=== PATIENT | female | born 1980 | race African-American/Black ===

== ENCOUNTER → 2017-09-02 12:44 | Outpatient (CLI) | payer MEDICAID, SELFPAY ==
[2017-09-02 13:37] LABS: Basophils # 0.1 K/mm3 (0-0.2); Basophils % 0.4 % (0.1-2.0); Eosinophils # 0.2 K/mm3 (0.0-0.4); Eosinophils % 1.4 % (0.1-12.0); Hematocrit 52.2 % (37.0-47.0); Lymphocytes # 3.7 K/mm3 (0.7-4.5); Lymphocytes % 28.4 K/mm3 (10-50); Mean Corpuscular HGB Conc 30.6 g/dL (31.8-35.4); Mean Corpuscular Hemoglobin 26.3 pg (27.0-31.2); Mean Corpuscular Volume 85.8 fl (81-99); Mean Platelet Volume 8.5 fl (7.4-10.4); Monocytes # 0.6 K/mm3 (0.1-1.0); Monocytes % 4.4 % (1.7-9.3); Neutrophils # 8.6 K/mm3 (1.8-7.8); Neutrophils % 65.5 % (37.0-80.0); Platelet Count 266 K/mm3 (142-424); Red Blood Count 6.08 M/mm3 (4.20-5.40); Red Cell Distribution Width 14.9 % (11.5-17.5); White Blood Count 13.2 K/mm3 (4.8-10.8)
[2017-09-02 15:11] LABS: Alanine Aminotransferase 35 U/L (12-78); Albumin Level 4.2 gm/dL (3.4-5.0); Albumin/Globulin Ratio 1.1 (1.1-1.8); Alkaline Phosphatase 106 U/L (46-116); Anion Gap 13.1 mEq/L (5-15); Aspartate Amino Transferase 10 U/L (15-37); Bilirubin,Total 0.5 mg/dL (0.2-1.0); Blood Urea Nitrogen 6 mg/dL (7-18); Calcium 9.4 mg/dL (8.5-10.1); Carbon Dioxide 28 mmol/L (21.0-32.0); Chloride 103 mmol/L (98-107); Chol/HDL Ratio 3.3 (1-3.5); Cholesterol 180 mg/dL (140-200); Creatinine,Serum 0.79 mg/dL (0.55-1.02); Estimated Glomerular Filt Rate > 60 ml/min (>60); GFR (African American) > 60 ML/MIN (>60); Glucose 86 mg/dL (74-106); HDL Cholesterol 55 mg/dL (29-89); LDL Cholesterol 105 mg/dL (0-130); Potassium 4.1 mmoL/L (3.5-5.1); Sodium 140 mmol/L (136-145); Total Protein,Serum 8.2 gm/dL (6.4-8.2); Triglycerides 99 mg/dL (30-200); VLDL Cholesterol 20 mg/dL (0-40)
[2017-09-03 07:12] LABS: Hep A Ab, IgM Negative (Negative); Hepatitis B Core Antibody IgM Negative (Negative); Hepatitis B Surface Antigen Negative (Negative)
[2017-09-03 14:40] LABS: HIV Screen 4th Generation wRfx Non Reactive (Non Reactive); Hepatitis C Antibody >11.0 s/co ratio (0.0-0.9); Rapid Plasma Reagin Ab Titer Non Reactive (NonRea<1:1)
== END ==
PROVIDERS: PCP Nurse Practitioner Family; Visit Provider Nurse Practitioner Family
DX: B18.2 Chronic viral hepatitis C (principal); Z87.898 Personal history of other specified conditions; Z20.2 Contact with and (suspected) exposure to infections with a predominantly sexual mode of transmission; Z00.00 Encounter for general adult medical examination without abnormal findings
CPT/HCPCS: 36415; 80053; 80061; 80074; 85025; 86592; 86703; G0432

== ENCOUNTER 2017-09-02 19:45 | Emergency (ER) | payer MEDICAID, SELFPAY ==
[2017-09-02 19:55] VITALS: BP 129/69; PULSE 82; RESP 16; TEMP 36.6; O2SAT 100; BMI 25.7
[2017-09-02 20:25] LABS: Amphetamine/Metha Screen,Urine Negative ng/mL (<1000); Barbiturates Screen,Urine Negative ng/mL (<200); Benzodiazepines Screen,Urine Negative ng/mL (200); Cannabinoid Screen,Urine Negative ng/mL (<50); Cocaine Screen,Urine Negative ng/g (<300); Methadone Screen,Urine Negative ng/mL (<300); Opiate Screen,Urine Negative ng/mL (<300); Phencyclidine Screen,Urine Negative ng/mL (<25)
--- NOTE | 2017-09-02 21:20 | HMH.EDANX ---
ED Disposition Clinical Impression: Hyperventilation Disposition: Home, Self-Care Condition on Discharge: Good Instructions: Anxiety and Panic Attacks (Alternative Therapy) Additional Instructions: call pcp for follow up Referrals: Grace Beltre APRN [Primary Care Provider] - - Critical Care Critical Care Time: No Attestation: On 09/02/17, the high probability of a clinically significant, sudden or life threatening deterioration of the following system(s) required my full and direct attention, intervention and personal management. The time I documented below is in addition to time spent performing reported procedures but includes the following listed in this critical care notation. Medical Decision Making - Medical Records Medical records reviewed: Yes: I reviewed the patient's medical records. Vital Signs: 09/02/17 19:55 Temperature 98 F Temperature Source Oral Pulse Rate [Right Brachial] 82 Respiratory Rate 16 Blood Pressure [Right Arm] 129/69 Blood Pressure Mean [Right Arm] 89 Blood Pressure Source [Right Arm] Automatic Cuff Blood Pressure Position [Right Arm] Sitting 02 Sat by Pulse Oximetry 100 Oxygen Delivery Method Room Air - Lab Data Lab Results 09/02/17 20:08: Urine Opiates Screen Negative, Ur Barbituates Screen Negative, Ur Phencyclidine Scrn Negative, Ur Amphetamines Screen Negative, U Methamphetamines Scrn Negative, U Benzodiazepines Scrn Negative, Urine Cocaine Screen Negative, U Marijuana (THC) Screen Negative - Henry Inquiry Pt receiving controlled substance: No Anxiety HPI - General Chief Complaint: Anxiety Stated Complaint: Shaking, numbness in legs, tightness in chest, Time Seen by Provider: 09/02/17 21:20 Mode of Arrival: Ambulatory Limitations: No Limitations Description of Symptoms (Recalled from ER Triage Doc. by RN): PATIENT WAS USING A RAZOR THAT HER EX BOYFRIEND PACKED WHEN THEY SPLIT IN AUG AND SHE SUDDENLY STARTED SHAKING UNCONTROLLABLY AND DEVELOPED NUMBNESS TO TOP OF FEET AND ROOF OF MOUTH AND UP JOSEPH OF LEGS. SEEMS TO THINK IT IS RELATED TO THE RAZOR USE - History of Present Illness HPI narrative: no hives or itching and no reddness and no swelling or speech or visual sx and lasted 2 hrs at baseline now MD complaint: anxiety Onset (ago): hour(s) Symptoms: extremity numbness/tingling, perioral numbness/tingling Severity: moderate Quality: improving Place: home History of similar episodes: No Provoking factors: none known - Related Data Allergies/Adverse Reactions: Allergies Allergy/AdvReac Type Severity Reaction Status Date / Time From LORTAB Allergy Intermediate I-ITCHING Uncoded 08/19/17 14:39 From CIPRO Allergy Unknown S-SWELLS-OR Uncoded 08/19/17 14:39 AL/THROAT [facility] History I have reviewed the patient's past medical history: Yes Medical History: Denies:: Cancer, Diabetes Mellitus Type 1, Diabetes Mellitus Type 2, MRSA Amputation: No Fractures: No - *Social History Educational Level: Completed High School Smoking Status: Current every day smoker Tobacco Type: cigarettes Alcohol Intake: never - Psychiatric History Expresses thoughts of harming self/others: None Suicide Plan Description: No Plan ROS Obtained: Yes All systems reviewed & no additional complaints except as noted - Constitutional Denies fever(s) - Eyes Denies change in vision - Cardiovascular Denies lightheadedness, Denies rapid, pounding, or irregular heartbeat, Denies radiating jaw, neck or arm pain, Denies fainting - Respiratory Denies cough, Denies shortness of breath - Neurologic Reports tingling, Denies confusion, Denies seizure-like activity, Denies headache(s), Denies loss of vision - Psychiatric Denies thoughts of hurting/killing others, Denies seeing things others do not see Physical Exam - General General appearance: alert, in no apparent distress - Head Head exam: atraumatic - Eye Eye exam: Present: normal appearance -
--- NOTE | 2017-09-02 21:23 | ED_ITS ---
ED Disposition Clinical Impression: Hyperventilation Disposition: Home, Self-Care Condition on Discharge: Good Instructions: Anxiety and Panic Attacks (Alternative Therapy) Additional Instructions: call pcp for follow up Referrals: Grace Beltre APRN [Primary Care Provider] - - Critical Care Critical Care Time: No Attestation: On 09/02/17, the high probability of a clinically significant, sudden or life threatening deterioration of the following system(s) required my full and direct attention, intervention and personal management. The time I documented below is in addition to time spent performing reported procedures but includes the following listed in this critical care notation. Medical Decision Making - Medical Records Medical records reviewed: Yes: I reviewed the patient's medical records. Vital Signs: 09/02/17 19:55 Temperature 98 F Temperature Source Oral Pulse Rate [Right Brachial] 82 Respiratory Rate 16 Blood Pressure [Right Arm] 129/69 Blood Pressure Mean [Right Arm] 89 Blood Pressure Source [Right Arm] Automatic Cuff Blood Pressure Position [Right Arm] Sitting 02 Sat by Pulse Oximetry 100 Oxygen Delivery Method Room Air - Lab Data Lab Results 09/02/17 20:08: Urine Opiates Screen Negative, Ur Barbituates Screen Negative, Ur Phencyclidine Scrn Negative, Ur Amphetamines Screen Negative, U Methamphetamines Scrn Negative, U Benzodiazepines Scrn Negative, Urine Cocaine Screen Negative, U Marijuana (THC) Screen Negative - Henry Inquiry Pt receiving controlled substance: No Anxiety HPI - General Chief Complaint: Anxiety Stated Complaint: Shaking, numbness in legs, tightness in chest, Time Seen by Provider: 09/02/17 21:20 Mode of Arrival: Ambulatory Limitations: No Limitations Description of Symptoms (Recalled from ER Triage Doc. by RN): PATIENT WAS USING A RAZOR THAT HER EX BOYFRIEND PACKED WHEN THEY SPLIT IN AUG AND SHE SUDDENLY STARTED SHAKING UNCONTROLLABLY AND DEVELOPED NUMBNESS TO TOP OF FEET AND ROOF OF MOUTH AND UP JOSEPH OF LEGS. SEEMS TO THINK IT IS RELATED TO THE RAZOR USE - History of Present Illness HPI narrative: no hives or itching and no reddness and no swelling or speech or visual sx and lasted 2 hrs at baseline now MD complaint: anxiety Onset (ago): hour(s) Symptoms: extremity numbness/tingling, perioral numbness/tingling Severity: moderate Quality: improving Place: home History of similar episodes: No Provoking factors: none known - Related Data Allergies/Adverse Reactions: Allergies Allergy/AdvReac Type Severity Reaction Status Date / Time From LORTAB Allergy Intermediate I-ITCHING Uncoded 08/19/17 14:39 From CIPRO Allergy Unknown S-SWELLS-OR Uncoded 08/19/17 14:39 AL/THROAT [facility] History I have reviewed the patient's past medical history: Yes Medical History: Denies:: Cancer, Diabetes Mellitus Type 1, Diabetes Mellitus Type 2, MRSA Amputation: No Fractures: No - *Social History Educational Level: Completed High School Smoking Status: Current every day smoker Tobacco Type: cigarettes Alcohol Intake: never - Psychiatric History Expresses thoughts of harming self/others: None Suicide Plan Description: No Plan ROS Obtained: Yes All systems reviewed & no additional complaints except as noted - Constitutional Denies fever(s) - Eyes Denie
[2017-09-02 21:41] VITALS: BP 119/85; PULSE 58; RESP 18; TEMP 36.6; O2SAT 99
== END 2017-09-02 21:44 | disposition home or self-care (01) ==
PROVIDERS: Emergency Provider Emergency Medicine; PCP Nurse Practitioner Family
DX: F41.9 Anxiety disorder, unspecified (principal); F40.01 Agoraphobia with panic disorder; F17.210 Nicotine dependence, cigarettes, uncomplicated
CPT/HCPCS: 80305; 99282; 99283

== ENCOUNTER → 2017-09-25 10:53 | Outpatient (CLI) | payer MEDICAID, SELFPAY ==
--- NOTE | 2017-09-25 11:06 | XR_ITS ---
XR chest 2V HISTORY: ITS.REASON: PERSISTENT COUGH ORDERING PHYSICIAN: Grace Beltre PATIENT AGE: 37 years COMPARISON: None available FINDINGS: The cardiac size is upper limits of normal. No evidence of CHF.. The lungs are clear without infiltrates, suspicious nodules, or pleural effusions. All granulomatous disease No acute bony abnormalities. IMPRESSION: No change with no acute finding
== END ==
PROVIDERS: PCP Internal Medicine Adolescent Medicine; Visit Provider Nurse Practitioner Family
DX: R05 Cough (principal)
CPT/HCPCS: 71046

== ENCOUNTER 2017-12-03 10:27 | Emergency (ER) | payer MEDICAID, SELFPAY ==
[2017-12-03 10:28] VITALS: BP 121/76; PULSE 63; RESP 18; TEMP 36.4; O2SAT 100; BMI 28.3
--- NOTE | 2017-12-03 10:41 | HMH.EDANX ---
ED Disposition Clinical Impression: Acute anxiety Disposition: Home, Self-Care Condition on Discharge: Good Instructions: Anxiety Disorders Additional Instructions: Please follow up with [facility]: [place] [address] within the next 2 days. Prescriptions: Amitriptyline HCl [Elavil 10mg tablet] 10 mg PO DAILY #30 tab Referrals: Nam Mccord MD [Primary Care Provider] - Forms: Work/School Release Time of Disposition: 13:03 - Critical Care Critical Care Time: No Attestation: On , the high probability of a clinically significant, sudden or life threatening deterioration of the following system(s) required my full and direct attention, intervention and personal management. The time I documented below is in addition to time spent performing reported procedures but includes the following listed in this critical care notation. Medical Decision Making - Medical Records Medical records reviewed: Yes: I reviewed the patient's medical records. - Henry Inquiry Pt receiving controlled substance: No Vital Signs: 12/03/17 10:28 12/03/17 12:38 12/03/17 13:11 Temperature 97.6 F 98.4 F Temperature Source Temporal Artery Scan Pulse Rate 76 Pulse Rate [Right Brachial] 63 72 Respiratory Rate 18 18 16 Blood Pressure 121/77 Blood Pressure [Right Arm] 121/76 122/80 Blood Pressure Mean [Right Arm] 91 94 Blood Pressure Source [Right Arm] Automatic Cuff Blood Pressure Position [Right Arm] Sitting 02 Sat by Pulse Oximetry 100 100 Oxygen Delivery Method Room Air Room Air Room Air - Lab Data Lab Results 12/03/17 10:40: Urine Color Yellow, Urine Appearance Clear, Urine pH 6.0, Ur Specific [place] >= 1.030, Urine Protein Trace, Urine Glucose (UA) Negative, Urine Ketones 1+, Urine Blood Negative, Urine Nitrate Negative, Urine Bilirubin Negative, Urine Urobilinogen 0.2, Ur Leukocyte Esterase Trace, Urine RBC None, Urine WBC Occasional, Ur Squamous Epith Cells 20-50, Urine Bacteria 2+, Urine Mucus 4+ 12/03/17 10:40: Urine Opiates Screen Negative, Ur Barbituates Screen Negative, Ur Phencyclidine Scrn Negative, Ur Amphetamines Screen Negative, U Methamphetamines Scrn Negative, U Benzodiazepines Scrn Negative, Urine Cocaine Screen Negative, U Marijuana (THC) Screen Negative 12/03/17 11:05: WBC 16.3 H, RBC 5.94 H, Hgb 16.7 H, Hct 52.2 H, MCV 87.8, MCH 28.2, MCHC 32.1, RDW 14.2, Plt Count 262, MPV 8.4, Neut % (Auto) 75.2, Lymph % (Auto) 17.9, [place] % (Auto) 5.0, Eos % (Auto) 1.5, Baso % (Auto) 0.4, Neut # (Auto) 12.3 H, Lymph # (Auto) 2.9, [place] # (Auto) 0.8, Eos # (Auto) 0.3, Baso # (Auto) 0.1, Total Counted 100, Neutrophils % (Manual) 75, Lymphocytes % (Manual) 17, Atypical Lymphs % 2.0, Monocytes % (Manual) 5, Eosinophils % (Manual) 1, Platelet Estimate Normal 12/03/17 11:05: Sodium 139, Potassium 4.3, Chloride 101, Carbon Dioxide 28, Anion Gap 14.3, BUN 8, Creatinine 0.80, Estimated Creat Clear 112, Estimated GFR 82, Est GFR ( Amer) 99, Glucose 90, Calcium 10.1, Total Bilirubin 0.6, AST 15, ALT 28, Alkaline Phosphatase 102, Total Protein 9.3 H, Albumin 4.6, Globulin 4.7 H, Albumin/Globulin Ratio 1.0 L, TSH 0.98, Salicylates 4.2, Acetaminophen 0 L Result diagrams: 12/03/17 11:05 12/03/17 11:05 Orders (Tests/Meds): ORDERS Category Date Time Status Urine Culture Stat Micro 12/03/17 10:40 Received - Reevaluation(s) Time: 13:00 Reevaluation #1: Patient appears medically stable, in no acute distress at this time. She appears to have a need for additional outpatient psychiatric evaluation, information given for [facility]. Anxiety HPI - General Chief Complaint: Anxiety Stated Complaint: Anxiety Time Seen by Provider: 12/03/17 10:41 Mode of Arrival: Ambulatory Limitations: No Limitations Description of Symptoms (Recalled from ER Triage Doc. by RN): Pt reports is here r/t anxiety. Pt reprots
[2017-12-03 11:14] LABS: Appearance,Urine CLEAR (Clear); Bilirubin,Urine Negative (Negative); Blood, Urine Negative (Negative); Color,Urine YELLOW (Yellow); Glucose,Urine (UA) Negative (Negative); Ketones,Urine 1+ (Negative); Leukocyte Esterase,Urine TRACE (Negative); Microscopic, Urine URINE MICROSCOPIC (MICROSCOPIC); Nitrate,Urine Negative (Negative); Protein,Urine TRACE (Negative); Specific Gravity, Urine >= 1.030 (1.005-1.030); Urobilinogen,Urine 0.2 EU/dl (0.2)
[2017-12-03 11:15] LABS: Basophils # 0.1 K/mm3 (0-0.2); Basophils % 0.4 % (0.1-2.0); Eosinophils # 0.3 K/mm3 (0.0-0.4); Eosinophils % 1.5 % (0.1-12.0); Hematocrit 52.2 % (37.0-47.0); Hemoglobin 16.7 g/dL (12.2-16.2); Lymphocytes # 2.9 K/mm3 (0.7-4.5); Lymphocytes % 17.9 K/mm3 (10-50); Mean Corpuscular HGB Conc 32.1 g/dL (31.8-35.4); Mean Corpuscular Hemoglobin 28.2 pg (27.0-31.2); Mean Corpuscular Volume 87.8 fl (81-99); Mean Platelet Volume 8.4 fl (7.4-10.4); Monocytes # 0.8 K/mm3 (0.1-1.0); Neutrophils # 12.3 K/mm3 (1.8-7.8); Neutrophils % 75.2 % (37.0-80.0); Platelet Count 262 K/mm3 (142-424); Red Blood Count 5.94 M/mm3 (4.20-5.40); Red Cell Distribution Width 14.2 % (11.5-17.5); White Blood Count 16.3 K/mm3 (4.8-10.8)
[2017-12-03 11:18] LABS: MANUAL DIFFERENTIAL MANUAL DIFFERENTIAL (MANUAL DIFF)
[2017-12-03 11:22] LABS: Amphetamine/Metha Screen,Urine Negative ng/mL (<1000); Barbiturates Screen,Urine Negative ng/mL (<200); Benzodiazepines Screen,Urine Negative ng/mL (200); Cannabinoid Screen,Urine Negative ng/mL (<50); Cocaine Screen,Urine Negative ng/g (<300); Methadone Screen,Urine Negative ng/mL (<300); Opiate Screen,Urine Negative ng/mL (<300); Phencyclidine Screen,Urine Negative ng/mL (<25)
[2017-12-03 11:32] LABS: Bacteria,Urine 2+ /lpf; Mucus,Urine 4+ /lpf; Squamous Epithelial Cell,Urine 20-50 #/hpf (0-5); WBC,Urine Occasional #/hpf (0-3)
[2017-12-03 11:37] LABS: Alanine Aminotransferase 28 U/L (12-78); Albumin Level 4.6 gm/dL (3.4-5.0); Alkaline Phosphatase 102 U/L (46-116); Anion Gap 14.3 mEq/L (5-15); Aspartate Amino Transferase 15 U/L (15-37); Bilirubin,Total 0.6 mg/dL (0.2-1.0); Blood Urea Nitrogen 8 mg/dL (7-18); Calcium 10.1 mg/dL (8.5-10.1); Carbon Dioxide 28 mmol/L (21.0-32.0); Chloride 101 mmol/L (98-107); Creatinine Clearance Estimated 112 mL/min (0-300); Estimated Glomerular Filt Rate 82 ml/min (>60); GFR (African American) 99 ML/MIN (>60); Globulin 4.7 gm/dl (1.3-3.2); Glucose 90 mg/dL (74-106); Potassium 4.3 mmoL/L (3.5-5.1); Salicylate 4.2 mg/dL (2.8-20.0); Sodium 139 mmol/L (136-145); Thyroid Stimulating Hormone 0.98 uIU/ml (0.358-3.740); Total Protein,Serum 9.3 gm/dL (6.4-8.2)
[2017-12-03 11:44] LABS: Eosinophils % 1 % (0-3); Lymphocytes % 17 % (10-50); Monocytes % 5 % (2-9); Neutrophils % 75 % (42-76); Platelet Estimate Normal; Total Cells Counted 100
[2017-12-03 11:46] LABS: Acetaminophen 0 ug/mL (10-30)
--- NOTE | 2017-12-03 12:15 | PC.NURSE ---
Notified ANICETO LAMAR that all of pt results are back
[2017-12-03 12:38] VITALS: BP 122/80; PULSE 72; RESP 18; O2SAT 100
[2017-12-03 13:11] VITALS: BP 121/77; PULSE 76; RESP 16; TEMP 36.9; O2SAT 99
== END 2017-12-03 13:12 | disposition home or self-care (01) ==
PROVIDERS: Emergency Provider Emergency Medicine; PCP Internal Medicine Adolescent Medicine
DX: F41.9 Anxiety disorder, unspecified (principal); F17.210 Nicotine dependence, cigarettes, uncomplicated
CPT/HCPCS: 36415; 80053; 80305; 80329; 81001; 84443; 85007; 85025; 87086; 99283

== ENCOUNTER → 2018-07-22 16:43 | Outpatient (CLI) | payer MEDICAID, SELFPAY ==
[2018-07-22 18:02] LABS: Basophils # 0.1 K/mm3 (0-0.2); Basophils % 0.4 % (0.1-2.0); Eosinophils # 0.1 K/mm3 (0.0-0.4); Eosinophils % 1.3 % (0.1-12.0); Hematocrit 45.6 % (37.0-47.0); Hemoglobin 14.2 g/dL (12.2-16.2); Lymphocytes # 3.4 K/mm3 (0.7-4.5); Lymphocytes % 32.3 % (10-50); Mean Corpuscular Hemoglobin 26.9 pg (27.0-31.2); Mean Corpuscular Volume 86.8 fl (81-99); Mean Platelet Volume 8.7 fl (7.4-10.4); Monocytes # 0.8 K/mm3 (0.1-1.0); Monocytes % 7.2 % (1.7-9.3); Neutrophils # 6.1 K/mm3 (1.8-7.8); Neutrophils % 58.8 % (37.0-80.0); Platelet Count 224 K/mm3 (142-424); Red Blood Count 5.26 M/mm3 (4.20-5.40); Red Cell Distribution Width 13.2 % (11.5-17.5); White Blood Count 10.4 K/mm3 (4.8-10.8)
[2018-07-22 18:19] LABS: Alanine Aminotransferase 19 U/L (12-78); Albumin Level 3.8 gm/dL (3.4-5.0); Alkaline Phosphatase 75 U/L (46-116); Anion Gap 12.4 mEq/L (5-15); Aspartate Amino Transferase 8 U/L (15-37); Bilirubin,Total 0.5 mg/dL (0.2-1.0); Blood Urea Nitrogen 14 mg/dL (7-18); Calcium 9.1 mg/dL (8.5-10.1); Carbon Dioxide 27 mmol/L (21.0-32.0); Chloride 104 mmol/L (98-107); Creatinine,Serum 0.79 mg/dL (0.55-1.02); Estimated Glomerular Filt Rate 82 ml/min (>60); GFR (African American) 100 ML/MIN (>60); Globulin 3.9 gm/dl (1.3-3.2); Potassium 4.4 mmoL/L (3.5-5.1); Sodium 139 mmol/L (136-145); Total Protein,Serum 7.7 gm/dL (6.4-8.2)
[2018-07-22 18:47] LABS: Glucose 75 mg/dL (74-106)
== END ==
PROVIDERS: Visit Provider Nurse Practitioner
DX: B18.2 Chronic viral hepatitis C (principal); Z79.899 Other long term (current) drug therapy
CPT/HCPCS: 36415; 80053; 85025; 87522

== ENCOUNTER → 2021-06-16 09:54 | Outpatient (CLI) | payer SELFPAY ==
[2021-06-16 11:27] LABS: Alanine Aminotransferase 12 U/L (12-78); Albumin Level 4.2 g/dl (3.5-5.0); Albumin/Globulin Ratio 1.3 (1.1-1.8); Alkaline Phosphatase 67 U/L (38-126); Anion Gap 11.7 mEq/L (5-15); Aspartate Amino Transferase 23 U/L (14-36); Bilirubin,Total 0.3 mg/dl (0.2-1.3); Blood Urea Nitrogen 10 mg/dl (7-17); Calcium 9.5 mg/dl (8.4-10.2); Carbon Dioxide 25 mmol/L (22.0-30.0); Chloride 107 mmol/L (98-107); Chol/HDL Ratio 3.2 (1-3.5); Cholesterol 197 mg/dl (140-200); Estimated Glomerular Filt Rate 111 ml/min (>60); GFR (African American) 135 ML/MIN (>60); Globulin 3.2 g/dL (1.3-3.2); Glucose 87 mg/dl (74-100); HDL Cholesterol 62 mg/dl (40-60); Potassium 4.7 mmoL/L (3.5-5.1); Sodium 139 mmol/L (136-145); Total Protein,Serum 7.4 g/dl (6.3-8.2); Triglycerides 44 mg/dl (30-150); VLDL Cholesterol 9 mg/dL (0-40)
== END ==
PROVIDERS: Visit Provider Nurse Practitioner Family
DX: Z00.00 Encounter for general adult medical examination without abnormal findings (principal)
CPT/HCPCS: 36415; 80053; 80061

== ENCOUNTER → 2021-12-11 15:13 | Outpatient (CLI) | payer OTHER, SELFPAY ==
--- NOTE | 2021-12-11 15:19 | XR_ITS ---
FINAL REPORT CLINICAL HISTORY: PERSISTENT COUGH FOR 3WKS OR LONGER, PT HAD COVID IN SEP COMPARISON: 09/25/2017 FINDINGS: TWO-VIEW CHEST The heart size is normal. The mediastinum is normal. The lungs are clear. There is no pneumothorax. IMPRESSION: No acute cardiopulmonary process. Reviewed, Interpreted and Dictated by Alhaji Rodgers MD Transcribed by Marah Dinh Authenticated by Alhaji Rodgers MD on 12/11/2021 04:11:[address] [facility]
== END ==
PROVIDERS: PCP Nurse Practitioner Family; Visit Provider Nurse Practitioner Family
DX: R05.3 Chronic cough (principal)
CPT/HCPCS: 71046

== ENCOUNTER 2022-01-22 15:00 | Emergency (ER) | payer OTHER, SELFPAY ==
[2022-01-22 15:10] VITALS: BP 142/110; PULSE 72; RESP 20; TEMP 36.8; O2SAT 100; BMI 26.3
--- NOTE | 2022-01-22 15:41 | HMH.EDUTC ---
[facility] [place] Clinical Impression: Paronychia Disposition: Home, Self-Care Condition on Discharge: Good Instructions: Paronychia, DI for Paronychia, Amoxicillin and Clavulanic Acid, Mupirocin Additional Instructions: Soak finger 2-3 times daily in warm water and epson salt and pat dry Apply topical medication around the fingernail as directed Take oral antibiotics as prescribed Follow up with your Family Doctor if no improvement or any worsening of symptoms Straight to ER if any life threatening symptoms Prescriptions: Amoxicillin/Potassium Clav [Amox-Clav 875-125 mg Tablet] 1 tab PO BID #14 tab Transmission Status: Pending to [facility] Mupirocin [Bactroban 2% Ointment 22gm tube] 1 applicatio TP TID #22 gm Transmission Status: Pending to [facility] Referrals: Grace Beltre APRN [Primary Care Provider] - As needed Time of Disposition: 15:56 Medical Decision Making - Henry Inquiry Pt receiving controlled substance: No Henry was queried for this patient: No Vital Signs: 01/22/22 15:10 Temperature 98.2 F Temperature Source Oral Pulse Rate [Left Brachial] 72 Respiratory Rate 20 Blood Pressure [Left Arm] 142/110 H Blood Pressure Mean [Left Arm] 120 Blood Pressure Source [Left Arm] Automatic Cuff Blood Pressure Position [Left Arm] Sitting 02 Sat by Pulse Oximetry 100 Oxygen Delivery Method Room Air [facility] - General Stated complaint: swollen finger Time Seen by Provider: 01/22/22 15:41 Mode of Arrival: Ambulatory Source of Information: Patient Limitations: No Limitations Description of Symptoms (Recalled from Triage Doc. by RN): PATIENT C/O REDNESS AND SWELLING TO LEFT RING FINGER X 1 WEEK HEENT Symptoms (Recalled from RN notes): No Resp Symptoms (Recalled from RN notes): No Skin Symptoms (Recalled from RN notes): Yes MS Symptoms (Recalled from RN notes): No Functional Status (Recalled from RN notes): WNL - History of Present Illness Provider Complaint: Patient states that she has been having some swelling around her finger nail on her left ring finger States that she has been soaking it but today it was more red and swollen so she came in - Related Data Home Medications Medication Instructions Recorded Confirmed Levocetirizine Dihydrochloride 5 mg PO DAILY 01/22/22 01/22/22 [24Hr Allergy Relief] Montelukast Sodium [Singulair 10mg 10 mg PO PM 01/22/22 01/22/22 tablet] Previous Rx's Medication Instructions Recorded Amoxicillin/Potassium Clav 1 tab PO BID #14 tab 01/22/22 [Amox-Clav 875-125 mg Tablet] Mupirocin [Bactroban 2% Ointment 1 applicatio TP TID #22 gm 01/22/22 22gm tube] Allergies Allergy/AdvReac Type Severity Reaction Status Date / Time acetaminophen [From Lortab] Allergy Verified 01/22/22 15:20 ciprofloxacin [From Cipro] Allergy Swelling Verified 01/22/22 15:20 of Lip/Tongue/Throat hydrocodone [From Lortab] Allergy Verified 01/22/22 15:20 - Worker's Comp Is this a Worker's Comp case?: No [facility] History - Hepatitis A Screen Attestation statement:: This patient has been screened for Hepatitis A risk factors. I have reviewed the patient's past medical history: Yes Medical History: Reports:: Anxiety, Depression Denies:: Cancer, Diabetes Mellitus Type 1, Diabetes Mellitus Type 2, Hypertension, Migraine, MRSA, Seizures Comment: fiborids Other Surgeries: Yes: Amputation: No Fractures: No - Social History Smoking Status: Current every day smoker Tobacco Type: cigarettes Alcohol Intake: never Substance Use Type: former substance user Occupational Status: other - Psychiatric History Pschychiatric History:: Reports:: Anxiety, Depression Family Hx:: Cancer, Diabetes, Heart Attack, Stroke, Hypertension, Hyperlipidemia ROS Obtained: Yes All systems reviewed & no additional complaints, Yes Systems reviewed as appropriate & no additional complaints - Constitutional Constit
[2022-01-22 15:57] VITALS: BP 142/110; PULSE 72; RESP 20; TEMP 36.8; O2SAT 100
== END 2022-01-22 16:00 | disposition home or self-care (01) ==
PROVIDERS: Emergency Provider Nurse Practitioner; PCP Nurse Practitioner Family
DX: L03.012 Cellulitis of left finger (principal); Z88.1 Allergy status to other antibiotic agents; Z88.6 Allergy status to analgesic agent
CPT/HCPCS: 99212; G0463

== ENCOUNTER 2022-04-24 07:50 | Emergency (ER) | payer OTHER, SELFPAY ==
[2022-04-24 07:52] VITALS: BP 167/108; PULSE 83; RESP 18; TEMP 36.8; O2SAT 100; BMI 28.3
--- NOTE | 2022-04-24 08:15 | PC.NURSE ---
IV established and blood sent to the lab
[2022-04-24 08:30] VITALS: BP 172/106; PULSE 96; RESP 17; O2SAT 100
--- NOTE | 2022-04-24 08:40 | PC.NURSE ---
pt medicated per MAR
[2022-04-24 09:00] VITALS: BP 158/100; PULSE 86; RESP 18; O2SAT 100
[2022-04-24 09:19] VITALS: BP 151/90; PULSE 84; RESP 18; TEMP 36.8; O2SAT 100
--- NOTE | 2022-04-24 09:19 | PC.NURSE ---
pt given d/c instructions and IV d/c at this time
[2022-04-24 09:30] LABS: Alanine Aminotransferase 17 U/L (12-78); Albumin Level 4.8 g/dl (3.5-5.0); Albumin/Globulin Ratio 1.3 (1.1-1.8); Alkaline Phosphatase 95 U/L (38-126); Anion Gap 11.8 mEq/L (5-15); Aspartate Amino Transferase 23 U/L (14-36); Bilirubin,Total 0.4 mg/dl (0.2-1.3); Blood Urea Nitrogen 14 mg/dl (7-17); Calcium 10.3 mg/dl (8.4-10.2); Carbon Dioxide 31 mmol/L (22.0-30.0); Chloride 100 mmol/L (98-107); Estimated Glomerular Filt Rate 79 ml/min (>60); GFR (African American) 96 ML/MIN (>60); Globulin 3.8 g/dL (1.3-3.2); Glucose 86 mg/dl (74-100); Potassium 3.8 mmoL/L (3.5-5.1); Sodium 139 mmol/L (136-145); Total Protein,Serum 8.6 g/dl (6.3-8.2)
--- NOTE | 2022-04-24 09:43 | HMH.EDGENADL ---
Discharge Plan Disposition Patient Disposition: Home, Self-Care Condition: Good Chief Complaint: Allergic Reaction Prescriptions Prescriptions: No Action montelukast 10 MG tablet 10 mg PO PM levocetirizine 5 MG tablet 5 mg PO DAILY Clinical Impressions Clinical Impression: Contact dermatitis Discharge ED Provider: Kemal Foreman General Adult HPI General Chief complaint: Allergic Reaction Stated complaint: allergic reaction Time Seen by Provider: 04/24/22 08:30 History of Present Illness HPI narrative: Patient says that since Friday she used an [id number] facial peel. On Friday she felt sick and nauseated with an episode of vomiting. On Friday she developed a rash on her face in the areas where she used to the chemical peel. It itches. No severe pain. She has tried crsk-ado-xgssmfw hydrocortisone cream without relief. Throat feels itchy on the inside and the outside. Related Data Home Medications Medication Instructions Recorded Confirmed levocetirizine 5 mg tablet 5 mg PO DAILY Allergy symptoms 01/22/22 04/24/22 montelukast 10 mg tablet 10 mg PO PM Allergy symptoms 01/22/22 04/24/22 Allergies Allergy/AdvReac Type Severity Reaction Status Date / Time acetaminophen [From Lortab] Allergy Verified 01/22/22 15:20 ciprofloxacin [From Cipro] Allergy Swelling Verified 01/22/22 15:20 of Lip/Tongue/Throat hydrocodone [From Lortab] Allergy Verified 01/22/22 15:20 [facility] Medical History (Updated 04/24/22 @ 21:30 by Kemal Foreman MD) Anxiety Social History Smoking Status: Never smoker alcohol intake: never substance use type: former substance user current occupational status: other ROS Obtained: Yes Systems reviewed as appropriate & no additional complaints except as documented Constitutional Constitutional: Denies fever(s) ENT Ears, Nose, Mouth, and Throat: Reports as per HPI and Denies dysphagia Respiratory Respiratory: Denies shortness of breath Gastrointestinal Gastrointestingal: Reports nausea and vomiting; Denies dysphagia Physical Exam General General appearance: alert and in no apparent distress ENT ENT exam: Present other (Erythematous mildly edematous facial rash forehead cheeks and chin. No signs of secondary infection. No vesicles.) Neck Neck exam: Present normal inspection and trachea midline Chest Chest inspection: Present normal inspection and symmetric chest wall rise Respiratory Respiratory exam: Present normal lung sounds bilaterally; Absent respiratory distress, wheezes or stridor Cardiovascular Cardiovascular exam: Present regular rate and normal rhythm Extremities Exam Extremities exam: Present normal inspection Neurological Exam Neurological exam: Present alert, oriented X3 and CN II-XII intact Psychiatric Psychiatric exam: Present normal affect and normal mood Skin Skin exam: Present warm and dry Medical Decision Making Henry Inquiry Pt receiving controlled substance: No Vital Signs: 04/24/22 07:52 04/24/22 08:30 04/24/22 09:00 Temperature 98.3 F Temperature Source Oral Pulse Rate 96 H 86 Pulse Rate [Left Radial] 83 Respiratory Rate 18 17 18 Blood Pressure 172/106 H 158/100 H Blood Pressure [Right Arm] 167/108 H Blood Pressure Mean [Right Arm] 127 02 Sat by Pulse Oximetry 100 100 100 Oxygen Delivery Method Room Air Room Air Room Air 04/24/22 09:19 Temperature 98.3 F Temperature Source Oral Pulse Rate 84 Pulse Rate [Left Radial] Respiratory Rate 18 Blood Pressure 151/90 H Blood Pressure [Right Arm] Blood Pressure Mean [Right Arm] 02 Sat by Pulse Oximetry Oxygen Delivery Method Room Air Lab Data Lab Results 04/24/22 08:15: WBC 9.4, RBC 5.45 H, Hgb 14.9, Hct 47.9 H, MCV 87.9, MCH 27.3, MCHC 31.0 L, RDW 14.5, Plt Count 322, MPV 8.4, Neut % (Auto) 71.1, Lymph % (Auto) 20.9, [place] % (Auto) 5.8, Eos % (Auto) 1.2, Baso % (Auto) 1.0, Neut # (Auto) 6.7, Lymph # (Auto) 2.0, Mo
[2022-04-24 11:06] LABS: Hematocrit 47.9 % (37.0-47.0); Hemoglobin 14.9 g/dL (12.2-16.2); Mean Corpuscular Hemoglobin 27.3 pg (27.0-31.2); Mean Corpuscular Volume 87.9 fl (81-99); Red Blood Count 5.45 M/mm3 (4.20-5.40); Red Cell Distribution Width 14.5 % (11.5-17.5); White Blood Count 9.4 K/mm3 (4.8-10.8)
[2022-04-24 11:07] LABS: Basophils # 0.1 K/mm3 (0-0.2); Eosinophils # 0.1 K/mm3 (0.0-0.4); Eosinophils % 1.2 % (0.1-12.0); Lymphocytes % 20.9 % (10-50); Mean Platelet Volume 8.4 fl (7.4-10.4); Monocytes # 0.6 K/mm3 (0.1-1.0); Monocytes % 5.8 % (1.7-9.3); Neutrophils # 6.7 K/mm3 (1.8-7.8); Neutrophils % 71.1 % (37.0-80.0); Platelet Count 322 K/mm3 (142-424)
== END 2022-04-24 09:19 | disposition home or self-care (01) ==
PROVIDERS: Emergency Medicine; Emergency Provider Emergency Medicine; PCP Nurse Practitioner Family
DX: L23.9 Allergic contact dermatitis, unspecified cause (principal)
CPT/HCPCS: 80053; 85025; 96374; 96375; 99283

== ENCOUNTER 2022-11-03 18:53 | Emergency (ER) | payer OTHER, SELFPAY ==
[2022-11-03 19:20] VITALS: BP 126/83; PULSE 82; RESP 20; TEMP 37; O2SAT 97; BMI 24.7
--- NOTE | 2022-11-03 19:32 | EXP.UTC ---
Discharge Plan Disposition Patient Disposition: Home, Self-Care Condition: Good Prescriptions Prescriptions: New amoxicillin-pot clavulanate 875-125 mg Tablet 1 tab PO Q12H Qty: 20 0RF ktppjqlz-liwbeqxzr-US 3.5-10,000-1 mg/mL-unit/mL-% drops,suspension 4 drp otic (ear) Q8H 7 Days Qty: 10 0RF Rx Instructions: use in left ear as directed No Action montelukast 10 MG tablet 10 mg PO PM levocetirizine 5 MG tablet 5 mg PO DAILY Referrals Follow up/Referrals: Michael Salinas MD [Primary Care Provider] - See instructions Activity Restrictions/Add. Instructions Additional Instructions/Restrictions: Use drops in ear as prescribed Take oral antibiotics as prescribed Return if needed Straight to ER if any life threatening symptoms Follow up with your Family Doctor if no improvement or any worsening of symptoms Clinical Impressions Clinical Impression: Otitis media, Otitis externa Stand Alone Forms Stand Alone Forms: Work/School Release Instructions Patient Instructions: Middle Ear Infection, Otitis Externa Discharge ED Provider: Saskia Sandoval [facility] General Stated complaint: earache sinus Time Seen by Provider: 11/03/22 19:32 History of Present Illness Provider Complaint: Patient states that she started a couple days ago with pain in her left ear that has continued to get worse States that her ear has continued to get worse over the last couple of days States that now her ear is throbbing down in there and hurts when she touches it States that it feels swollen and hurts continuously Related Data Home Medications Medication Instructions Recorded Confirmed levocetirizine 5 mg tablet 5 mg PO DAILY Allergy symptoms 01/22/22 04/24/22 montelukast 10 mg tablet 10 mg PO PM Allergy symptoms 01/22/22 04/24/22 Previous Rx's Medication Instructions Recorded amoxicillin 875 mg-potassium 1 tab PO Q12H #20 tabs 11/03/22 clavulanate 125 mg tablet mqpzvcgl-znnyjkvfb-nelljrxfh 3.5 4 drp otic (ear) Q8H 7 days #10 mL 11/03/22 mg-10,000 unit/mL-1 % ear drops,susp Allergies Allergy/AdvReac Type Severity Reaction Status Date / Time acetaminophen [From Lortab] Allergy Verified 01/22/22 15:20 ciprofloxacin [From Cipro] Allergy Swelling Verified 01/22/22 15:20 of Lip/Tongue/Throat hydrocodone [From Lortab] Allergy Verified 01/22/22 15:20 PFSH PFS Disclaimer: The information contained in this section may have been updated after the patient was seen, as this information can be updated by other users. Medical History (Updated 11/03/22 @ 19:51 by Saskia Sandoval APRN) Anxiety Social History (Updated 04/24/22 @ 21:30 by Kemal Foreman MD) Smoking Status: Never smoker alcohol intake: never substance use type: former substance user current occupational status: other Travel in the last 8 weeks: None ROS Obtained: Yes All systems reviewed & no additional complaints except as documented and Yes Systems reviewed as appropriate & no additional complaints except as documented ENT Ears, Nose, Mouth, and Throat: Reports system reviewed and no additional complaints, except as documented, Reports as per HPI, Reports otalgia, Reports nasal congestion and Reports nasal discharge Cardiovascular Cardiovascular: Reports system reviewed and no additional complaints, except as documented and Reports as per HPI Respiratory Respiratory: Reports system reviewed and no additional complaints, except as documented, Reports as per HPI and Reports cough Gastrointestinal Gastrointestingal: Reports system reviewed and no additional complaints, except as documented and as per HPI Physical Exam General General appearance: alert and in no apparent distress Expanded ENT Exam External ear exam: Present pain with movement and external tenderness TM/Canal exam: Left TM: erythema and loss of landmarks Nose exam: Present sinus tenderness Respiratory Respiratory exam: Present n
[2022-11-03 19:37] VITALS: BP 126/83; PULSE 82; RESP 20; TEMP 37; O2SAT 97
== END 2022-11-03 19:56 | disposition home or self-care (01) ==
PROVIDERS: Emergency Provider Nurse Practitioner; PCP Social Worker
DX: H66.90 Otitis media, unspecified, unspecified ear (principal); H60.90 Unspecified otitis externa, unspecified ear
CPT/HCPCS: 99212; 99213; G0463

== ENCOUNTER 2023-08-01 10:00 | Outpatient (RCR) | payer OTHER, SELFPAY | END 2023-08-01 11:00 | disposition home or self-care (01) | LOC: PT 10:00 | PROVIDERS: PCP Social Worker; Visit Provider Physical Medicine & Rehabilitation | DX: M54.6 Pain in thoracic spine (principal); M25.512 Pain in left shoulder | CPT/HCPCS: 97010; 97014; 97016; 97110; 97140; 97163; 97164; 97530; G0283 ==

== ENCOUNTER 2023-11-26 13:49 | Outpatient (POV) | payer OTHER, SELFPAY ==
[2023-11-26 14:02] VITALS: BP 156/100; PULSE 79; RESP 18; O2SAT 100; BMI 23.2
--- NOTE | 2023-11-26 14:10 | A.OFFVIS_ITS ---
HPI Data of Consult Patient: new to practice Consult date: 11/26/23 Requesting Physician: Caitlin Blanton APRN Primary Care Provider: Michael Salinas Consult Narrative Reason for consult: Neck pain, left shoulder pain, left arm/hand pain History of present illness: Ms. Garces is a 43 year old female who presents today as a new patient. She is a referral from [facility]. Today she rates her pain 8 out of 10. Patient states that she has been experiencing pain along her neck with radiating symptoms down into her left shoulder and left arm and fingers. Patient states this is a work-related injury that occurred in June 2023. Patient states that she was at her work and she was trying to help move a patient when she started experiencing burning sensations into her left shoulder. Patient states she has tried [id number] Tylenol along with NSAIDs and Robaxin with minimal relief. Patient did go to physical therapy and is still going to physical therapy however she states she has not noticed any additional improvement. Patient has had updated imaging. She states the pain is constant with a burning stinging sensation and is tender to touch. She does state the pain interferes with her ability to perform activities of daily living such as cooking and cleaning. Patient is interested in any help we may be able to provide.SHe is not on any scheduled medications. Her Henry has been reviewed and is appropriate. CC: Caitlin Blanton APRN [facility] Disclaimer: The information contained in this section may have been updated after the patient was seen, as this information can be updated by other users. Medical History (Updated 11/26/23 @ 14:36 by Caitlin Blanton APRN) Facet arthropathy, cervical Anxiety Surgical History (Updated 11/26/23 @ 14:07 by Christina Rudd RN) H/O tubal ligation Previous section Family History (Updated 11/26/23 @ 14:35 by Christina Rudd RN) Other Cancer Social History (Updated 04/24/22 @ 21:30 by Kemal Foreman MD) Smoking Status: Never smoker alcohol intake: never substance use type: former substance user current occupational status: other Travel in the last 8 weeks: None Review of Systems Review of Systems Review of systems:: pertinent systems reviewed and negative unless documented below Review of systems (narrative): Review of Systems: General: No recent weight changes, no fever, no sleep disturbances Respiratory: No cough, no shortness of air, no recurring pulmonary infections Cardiovascular/peripheral vascular: No chest pain, no palpitations, no edema, no shortness of breath Gastrointestinal: No new onset incontinence, normal bowel movements reported Genitourinary: No new onset incontinence Musculoskeletal: Left-sided neck pain, left shoulder pain, left arm pain, left finger numbness tingling Psychiatric: [Normal mood/affect] Neurological: [Denies weakness in extremities], [denies balance issues] Meds Home Medications and Allergies Home Medications Medication Instructions Recorded Confirmed Type levocetirizine 5 mg tablet 5 mg PO DAILY Allergy symptoms 01/22/22 04/24/22 History montelukast 10 mg tablet 10 mg PO PM Allergy symptoms 01/22/22 04/24/22 History amoxicillin 875 mg-potassium 1 tab PO Q12H #20 tabs 11/03/22 Rx clavulanate 125 mg tablet [id number]-juqkrtakg-nacbymneb 3.5 4 drp otic (ear) Q8H 7 days #10 mL 11/03/22 Rx mg-10,000 unit/mL-1 % ear drops,susp New Prescriptions to Start Prescriptions: Allergies Allergy/AdvReac Type Severity Reaction Status Date / Time acetaminophen [From Lortab] Allergy Verified 01/22/22 15:20 ciprofloxacin [From Cipro] Allergy Swelling Verified 01/22/22 15:20 of Lip/Tongue/Throat hydrocodone [From Lortab] Allergy Verified 01/22/22 15:20 Objective Narrative: Physical Exam: General: Alert and oriented x3, no acute distress, pleasant and cooperative Lungs: Respirations even and unlabored, symmetrical chest expansion Eyes: PERRL Musculoskeletal: Flexion and extension of cervical [spine] somewhat guarded secondary to pain, point tenderness along the left cervical paraspinous, left trapezius and left rhomboid muscles Neurological: Speech clear, no gross sensory deficit Additional findings Additional findings: Cervical MRI without contrast 09/05/2023 Findings: Evaluation is somewhat degraded by patient motion. T1 marrow signal is preserved without evidence of fracture or suspicious marrow replacing lesion. There is straightening and mild reversal of the usual cervical lordosis without evidence of listhesis or subluxation. The cervical spinal cord is normal in caliber and signal throughout. The paraspinal soft tissues demonstrate no acute or suspicious findings. Multilevel spondylosis changes present with areas of involvement noted including C2-3 no significant narrowing C3-4: Disc osteophyte complex with bilateral facet arthropathy, minimal spinal canal and bilateral neuroforaminal narrowing C4-C5: Disc osteophyte complex and bilateral facet arthropathy. Mild spinal canal and bilateral neuroforaminal narrowing C5-6: Disc osteophyte complex and bilateral facet arthropathy with mild spinal canal and bilateral neuroforaminal narrowing C6-C7: Disc osteophyte complex and bilateral facet arthropathy with minimal spinal canal and bilateral neural foraminal narrowing present Assessment and Plan *Assessment and plan (1) Degenerative disc disease, cervical: Status: Acute Category: Medical Code(s): M50.30 - Other cervical disc degeneration, unspecified cervical region (2) Cervical radiculopathy: Status: Acute Category: Medical Code(s): M54.12 - Radiculopathy, cervical region (3) Myofascial pain: Status: Acute Category: Medical Code(s): M79.18 - Myalgia, other site (4) Left shoulder pain: Status: Acute Qualifiers: Chronicity: chronic Qualified Code(s): M25.512 - Pain in left shoulder; G89.29 - Other chronic pain Category: Medical Code(s): M25.512 - Pain in left shoulder (5) Left arm pain: Status: Acute Category: Medical Code(s): M79.602 - Pain in left arm Plan Patient is experiencing significant pain in her neck along the left side with limited range of motion of her cervical spine. Patient did have point tenderness in and around her left cervical paraspinous, left trapezius and left rhomboid muscles. I have discussed with the patient that she may benefit from trigger point injections as well as cervical epidural. Risk and benefits of both of these injections were explained to the patient and she does state that the point tenderness is the more bothersome than the numbness. I will also order the patient a compounded cream. Patient has tried and failed conservative therapy such as oral medication, heat and ice, topicals, current physical therapy. Patient will be scheduled for trigger point injections of her left c ervical paraspinous, left trapezius and left rhomboid muscles. Patient has been instructed to contact the clinic with any concerns before the next appointment. Dr. Salgado has reviewed this note and agrees with this plan of care. This note was dictated using voice recognition software and make contain errors or omissions.
== END 2023-11-26 23:59 ==
PROVIDERS: PCP Social Worker; Visit Provider Nurse Practitioner Family
DX: M50.10 Cervical disc disorder with radiculopathy, unspecified cervical region (principal); M79.18 Myalgia, other site; M25.512 Pain in left shoulder; G89.29 Other chronic pain; M79.602 Pain in left arm
CPT/HCPCS: 99202; G0463

== ENCOUNTER 2023-12-25 10:00 | Outpatient (RCR) | payer OTHER, SELFPAY | END 2023-12-25 11:00 | disposition home or self-care (01) | LOC: PT 10:00 | PROVIDERS: Visit Provider Physical Medicine & Rehabilitation | DX: M54.2 Cervicalgia (principal); S16.1XXA Strain of muscle, fascia and tendon at neck level, initial encounter | CPT/HCPCS: 97010; 97012; 97014; 97110; 97163; 97164; G0283 ==

== ENCOUNTER 2024-12-05 19:55 | Emergency (ER) | payer SELFPAY ==
[2024-12-05] VITALS (12 sets, daily range): BP systolic 136–165; BP diastolic 97–116; PULSE 79–91; RESP 12–15; TEMP 36.7–37.1; O2SAT 98–100; BMI 22.1
--- NOTE | 2024-12-05 20:09 | ECG_ITS ---
APPROVED REPORT Exam: Resting ECG HR:78 bpm ECG Measurements Heart Rate 78 AXES OH 156 P 44 QRSd 92 QRS 58 QT 357 T 29 QTc 390 Conclusion Sinus rhythm Electronically signed by : SNEHAL DEE, 12/05/2024 22:27:30
--- NOTE | 2024-12-05 20:14 | XR_ITS ---
PROCEDURE INFORMATION: Exam: XR Chest Exam date and time: 12/05/2024 8:20 PM Age: 44 years old Clinical indication: Pain; Left-sided; Additional info: Chest pain TECHNIQUE: Imaging protocol: Radiologic exam of the chest. Views: 2 views. COMPARISON: CR XR CHEST 2V 12/11/2021 3:24 PM FINDINGS: Airway: Airways are patent. Lungs: Lungs are clear. Pleural spaces: No pleural effusions or pneumothorax. Heart/Mediastinum: No cardiomegaly. Bones/joints: No acute skeletal abnormality or aggressive osseous lesion. Soft tissues: No acute soft tissue findings. IMPRESSION: No acute thoracic pathology.
[2024-12-05 20:28] LABS: Basophils % 0.3 % (0.1-2.0); Eosinophils % 0.4 % (0.1-12.0); Hematocrit 40.5 % (37.0-47.0); Hemoglobin 12.8 g/dL (12.2-16.2); Lymphocytes # 2.7 K/mm3 (0.7-4.5); Lymphocytes % 23.6 % (10-50); Mean Corpuscular HGB Conc 31.6 g/dL (31.8-35.4); Mean Corpuscular Hemoglobin 26.6 pg (27.0-31.2); Mean Platelet Volume 10.1 fl (7.4-10.4); Monocytes # 0.9 K/mm3 (0.1-1.0); Monocytes % 7.9 % (1.7-9.3); Neutrophils # 7.6 K/mm3 (1.8-7.8); Neutrophils % 67.6 % (37.0-80.0); Platelet Count 301 K/mm3 (142-424); Red Blood Count 4.82 M/mm3 (4.20-5.40); Red Cell Distribution Width 13.3 % (11.5-17.5); White Blood Count 11.3 K/mm3 (4.8-10.8)
[2024-12-05 20:35] LABS: Chloride 99 mmol/L (98-107)
[2024-12-05 20:36] LABS: Albumin Level 4.4 g/dl (3.5-5.0); Potassium 3.7 mmoL/L (3.5-5.1); Sodium 137 mmol/L (136-145)
[2024-12-05 20:38] LABS: Anion Gap 12.7 mEq/L (5-15); Blood Urea Nitrogen 10 mg/dl (7-17); Carbon Dioxide 29 mmol/L (22.0-30.0); Creatinine Clearance Estimated 82 mL/min (50-200); Estimated Glomerular Filt Rate 79 ml/min (>60); GFR (African American) 95 ML/MIN (>60)
[2024-12-05 20:39] LABS: Alanine Aminotransferase 15 U/L (12-78); Albumin/Globulin Ratio 1.3 (1.1-1.8); Alkaline Phosphatase 81 U/L (38-126); Aspartate Amino Transferase 24 U/L (14-36); Bilirubin,Total 0.6 mg/dl (0.2-1.3); Calcium 9.6 mg/dl (8.4-10.2); Globulin 3.4 g/dL (1.3-3.2); Glucose 68 mg/dl (74-100); Total Protein,Serum 7.8 g/dl (6.3-8.2)
[2024-12-05 20:51] LABS: Troponin I < 0.01 ng/ml (0.00-0.034)
--- NOTE | 2024-12-05 21:01 | PC.NURSE ---
this RN was reviewing patient's labs and glucose was noted to be 68. Pt provided orange juice, kellen crackers, and peanut butter. Provider notified. Will recheck FSBS at 9:15PM
[2024-12-05 21:31] LABS: HIV Combo NEGATIVE (Negative)
[2024-12-05 21:39] LABS: Hepatitis C Ab Qual. W/ RFX REACTIVE (Negative)
[2024-12-05] MEDS: IRBESARTAN 75MG TABLET 75 MG PO (21:49)
--- NOTE | 2024-12-05 22:08 | PC.NURSE ---
pt's blood sugar was 92
--- NOTE | 2024-12-05 22:24 | ED_ITS ---
Discharge Plan Disposition Patient Disposition: Home, Self-Care Prescriptions Prescriptions: No Action losartan 25 mg Tablet 25 mg PO DAILY Referrals Follow up/Referrals: Michael Salinas MD [Primary Care Provider] - See instructions Activity Restrictions/Add. Instructions Additional Instructions/Restrictions: You were seen for elevated blood pressure. See your PCP this week. Increase your losartan to 1.5 tablets a day. Clinical Impressions Clinical Impression: Hypertension Stand Alone Forms Stand Alone Forms: Work/School Release Instructions Patient Instructions: High Blood Pressure Print Language Print Language: Greek Discharge ED Provider: Jimmy Vargas General Adult HPI <ELY Main - Last Filed: 12/05/24 22:31> General Chief complaint: Dizziness Stated complaint: high blood pressure Time Seen by Provider: 12/05/24 19:59 Mode of Arrival: Ambulatory Source of Information: Patient Description of Symptoms (Recalled from ER Triage Doc. by RN): patient states she has been having issues with her blood pressure being high, was taken to [facility] yesterday for a high blood pressure 160s systolically, she reports nothing was done they said she had a uti, today she is dizzy intermittently she states her chest gets tight at times and thats when she checks the blood pressure. History of Present Illness HPI narrative: Patient presents with reports of elevated blood pressure. She went to the [facility] emergency department yesterday. She reports that yesterday she was feeling dizzy, generally weak and lightheaded. She has had some intermittent chest pain pressure since yesterday as well. She has had some cough. She takes losartan 25 mg, previously took losartan 50 mg but lowered this due to hypotension. complaint: hypertension Onset (ago): day(s) Location: chest Radiation: non-radiation Severity: mild Quality: other (pressure) Relieving factors: none Exacerbating factors: none Associated symptoms: denies other symptoms Related Data Home Medications ?Medication ?Instructions ?Recorded ?Confirmed losartan 25 mg tablet 25 mg PO DAILY 12/05/24 12/05/24 Allergies Allergy/AdvReac Type Severity Reaction Status Date / Time No Known Allergies Allergy Verified 12/05/24 20:30 PFSH <ELY Main - Last Filed: 12/05/24 22:31> [facility] Disclaimer: The information contained in this section may have been updated after the patient was seen, as this information can be updated by other users. Medical History (Updated 12/05/24 @ 22:28 by ELY Main) Facet arthropathy, cervical Anxiety Surgical History (Updated 11/26/23 @ 14:07 by Christina Rudd, RN) H/O tubal ligation Previous section Family History (Updated 11/26/23 @ 14:35 by Christina Rudd, RN) Other Cancer Social History (Updated 11/26/23 @ 14:39 by Christina Rudd, RN) Smoking Status: Never smoker alcohol intake: never substance use type: former substance user current occupational status: employed Travel in the last 8 weeks: None Have you lived/traveled outside US in past 30 days?: No Contact w/someone who lives/traveled outside US past 30 days?: No Exposure to someone with infectious disease in past 14 days?: No Do you have a fever (greater than 100.4 F or 38 C)?: No Have you tested positive for COVID-19: No Exposed to someone with COVID-19 in past 14 days?: No Do you have a sore throat?: No Do you have a cough?: No Do you have any weakness?: No Do you have any diarrhea?: No Are you experiencing any unusual bleeding?: No Do you have any muscle aches/pain?: No Do you have any abdominal pain?: No Are you experiencing loss of taste or smell?: No Other Medical History Have you received the Flu Vaccine for this season: No Have you received the Pneumonia Vaccine: No <ELY Main - Last Filed: 12/05/24 22:31> ROS Obtained: Yes Systems reviewed as appropriate & no additional complaints except as documented Physical Exam <ELY Main - Last Filed: 12/05/24 22:31> General General appearance: alert and in no apparent distress Head Head exam: atraumatic and normocephalic Eye Eye exam: Present normal appearance and EOMI Chest Chest inspection: Present symmetric chest wall rise Respiratory Respiratory exam: Present normal lung sounds bilaterally; Absent wheezes or stridor Cardiovascular Cardiovascular exam: Present regular rate and normal rhythm; Absent systolic murmur Neurological Exam Neurological exam: Present alert and oriented X3 Psychiatric Psychiatric exam: Present normal affect and normal mood Skin Skin exam: Present warm, dry and intact Medical Decision Making <ELY Main - Last Filed: 12/05/24 22:31> Medical Records Screening: Per USPSTF and CDC recommendations, given the prevalence of disease in our region, it is our hospital?s policy to screen for HIV and viral Hepatitis for all patients aged 18 and over and those with ongoing risk factors. Henry Inquiry Pt receiving controlled substance: No Vital Signs: 12/05/24 20:06 12/05/24 20:13 12/05/24 20:20 Temperature 98.7 F Temperature Source Oral Pulse Rate 83 Pulse Rate [Left] 90 Respiratory Rate 15 Blood Pressure 165/109 H Blood Pressure [Left Arm] 163/116 H Blood Pressure Mean 127 Blood Pressure Mean [Left Arm] 131 Blood Pressure Source Blood Pressure Source [Left Arm] Automatic Cuff Blood Pressure Position Blood Pressure Position [Left Arm] Sitting 02 Sat by Pulse Oximetry 99 98 Oxygen Delivery Method Room Air 12/05/24 20:35 12/05/24 20:40 12/05/24 20:50 Temperature Temperature Source Pulse Rate 86 85 79 Pulse Rate [Left] Respiratory Rate Blood Pressure 150/102 H 153/106 H 149/106 H Blood Pressure [Left Arm] Blood Pressure Mean Blood Pressure Mean [Left Arm] Blood Pressure Source Blood Pressure Source [Left Arm] Blood Pressure Position Blood Pressure Position [Left Arm] 02 Sat by Pulse Oximetry 98 99 99 Oxygen Delivery Method 12/05/24 21:00 12/05/24 21:29 12/05/24 21:30 Temperature Temperature Source Pulse Rate 90 91 H Pulse Rate [Left] Respiratory Rate 15 Blood Pressure 149/110 H 153/107 H Blood Pressure [Left Arm] Blood Pressure Mean 127 Blood Pressure Mean [Left Arm] Blood Pressure Source Blood Pressure Source [Left Arm] Blood Pressure Position Blood Pressure Position [Left Arm] 02 Sat by Pulse Oximetry 99 99 Oxygen Delivery Method 12/05/24 22:12 12/05/24 22:15 12/05/24 22:28 Temperature 98.1 F Temperature Source Oral Pulse Rate 89 89 89 Pulse Rate [Left] Respiratory Rate 14 12 12 Blood Pressure 136/97 H 136/97 H Blood Pressure [Left Arm] Blood Pressure Mean Blood Pressure Mean [Left Arm] Blood Pressure Source Automatic Cuff Blood Pressure Source [Left Arm] Blood Pressure Position Supine Blood Pressure Position [Left Arm] 02 Sat by Pulse Oximetry 99 100 Oxygen Delivery Method Room Air Room Air Lab Data Lab Results 12/05/24 20:20: WBC 11.3 H, RBC 4.82, Hgb 12.8, Hct 40.5, MCV 84.0, MCH 26.6 L, MCHC 31.6 L, RDW 13.3, Plt Count 301, MPV 10.1, Neut % (Auto) 67.6, Lymph % (Auto) 23.6, Dickinson % (Auto) 7.9, Eos % (Auto) 0.4, Baso % (Auto) 0.3, Neut # (Auto) 7.6, Lymph # (Auto) 2.7, Dickinson # (Auto) 0.9, Eos # (Auto) 0.0, Baso # (Auto) 0.0, Sodium 137, Potassium 3.7, Chloride 99, Carbon Dioxide 29, Anion Gap 12.7, BUN 10, Creatinine 0.80, Estimated Creat Clear 82, Estimated GFR 79, Est GFR ( Amer) 95, Glucose 68 L, Calcium 9.6, Total Bilirubin 0.6, AST 24, ALT 15, Alkaline Phosphatase 81, Troponin I < 0.01, Total Protein 7.8, Albumin 4.4, Globulin 3.4 H, Albumin/Globulin Ratio 1.3, HCV Ab KATYA w/Rflx PCR Qn Reactive, HIV Ag/Ab Combo Qual Negative 12/05/24 20:20 12/05/24 20:20 Orders (Tests/Meds): ED MEDICATIONS Discontinued Medications Generic Name Dose Route Start Last Admin Trade Name Freq PRN Reason Stop Dose Admin Irbesartan 75 mg 12/05/24 21:32 12/05/24 21:49 Irbesartan 75mg Tablet PO 12/05/24 21:33 75 mg ONCE ONE Administration ORDERS Category Date Time Status XR chest 2V Stat Exams 12/05/24 20:14 Completed Complete Blood Count Auto Diff Stat Lab 12/05/24 20:20 Completed Comprehensive Metabolic Panel Stat Lab 12/05/24 20:20 Completed HCV RNA PCR, Quant Stat Lab 12/05/24 20:20 Received HIV Combo Stat Lab 12/05/24 20:20 Completed Hepatitis C Ab Qual. W/ RFX Stat Lab 12/05/24 20:20 Completed Troponin I Q3H Lab 12/05/24 23:15 Ordered Troponin I Q3H Lab 12/06/24 02:15 Ordered Troponin I Stat Lab 12/05/24 20:20 Completed Medical Decision Narrative: In summary patient is a 44-year-old female who presents the emergency department for evaluation of chest. Patient is hypertensive upon arrival, afebrile. Unremarkable physical. Differential diagnosis includes hypertensive urgency, ACS, pneumonia. Initial workup will be conducted with labs, chest x-ray, EKG. Initial inventions include 1 dose of home medication. Initial workup reviewed by me unremarkable labs, chest x-ray. Upon repeat evaluation blood pressure significantly improved. Given this patient is appropriate for discharge home at this time with follow-up with PCP. Advised to take 1-1/2 of her losartan as two was causing hypotension in the past. <Jimmy Vargas MD - Last Filed: 12/05/24 22:37> Vital Signs: 12/05/24 20:06 12/05/24 20:13 12/05/24 20:20 Temperature 98.7 F Temperature Source Oral Pulse Rate 83 Pulse Rate [Left] 90 Respiratory Rate 15 Blood Pressure 165/109 H Blood Pressure [Left Arm] 163/116 H Blood Pressure Mean 127 Blood Pressure Mean [Left Arm] 131 Blood Pressure Source Blood Pressure Source [Left Arm] Automatic Cuff Blood Pressure Position Blood Pressure Position [Left Arm] Sitting 02 Sat by Pulse Oximetry 99 98 Oxygen Delivery Method Room Air 12/05/24 20:35 12/05/24 20:40 12/05/24 20:50 Temperature Temperature Source Pulse Rate 86 85 79 Pulse Rate [Left] Respiratory Rate Blood Pressure 150/102 H 153/106 H 149/106 H Blood Pressure [Left Arm] Blood Pressure Mean Blood Pressure Mean [Left Arm] Blood Pressure Source Blood Pressure Source [Left Arm] Blood Pressure Position Blood Pressure Position [Left Arm] 02 Sat by Pulse Oximetry 98 99 99 Oxygen Delivery Method 12/05/24 21:00 12/05/24 21:29 12/05/24 21:30 Temperature Temperature Source Pulse Rate 90 91 H Pulse Rate [Left] Respiratory Rate 15 Blood Pressure 149/110 H 153/107 H Blood Pressure [Left Arm] Blood Pressure Mean 127 Blood Pressure Mean [Left Arm] Blood Pressure Source Blood Pressure Source [Left Arm] Blood Pressure Position Blood Pressure Position [Left Arm] 02 Sat by Pulse Oximetry 99 99 Oxygen Delivery Method 12/05/24 22:12 12/05/24 22:15 12/05/24 22:28 Temperature 98.1 F Temperature Source Oral Pulse Rate 89 89 89 Pulse Rate [Left] Respiratory Rate 14 12 12 Blood Pressure 136/97 H 136/97 H Blood Pressure [Left Arm] Blood Pressure Mean Blood Pressure Mean [Left Arm] Blood Pressure Source Automatic Cuff Blood Pressure Source [Left Arm] Blood Pressure Position Supine Blood Pressure Position [Left Arm] 02 Sat by Pulse Oximetry 99 100 Oxygen Delivery Method Room Air Room Air Lab Data Lab Results 12/05/24 20:20: WBC 11.3 H, RBC 4.82, Hgb 12.8, Hct 40.5, MCV 84.0, MCH 26.6 L, MCHC 31.6 L, RDW 13.3, Plt Count 301, MPV 10.1, Neut % (Auto) 67.6, Lymph % (Auto) 23.6, Dickinson % (Auto) 7.9, Eos % (Auto) 0.4, Baso % (Auto) 0.3, Neut # (Auto) 7.6, Lymph # (Auto) 2.7, Dickinson # (Auto) 0.9, Eos # (Auto) 0.0, Baso # (Auto) 0.0, Sodium 137, Potassium 3.7, Chloride 99, Carbon Dioxide 29, Anion Gap 12.7, BUN 10, Creatinine 0.80, Estimated Creat Clear 82, Estimated GFR 79, Est GFR ( Amer) 95, Glucose 68 L, Calcium 9.6, Total Bilirubin 0.6, AST 24, ALT 15, Alkaline Phosphatase 81, Troponin I < 0.01, Total Protein 7.8, Albumin 4.4, Globulin 3.4 H, Albumin/Globulin Ratio 1.3, HCV Ab KATYA w/Rflx PCR Qn Reactive, HIV Ag/Ab Combo Qual Negative Orders (Tests/Meds): ED MEDICATIONS Discontinued Medications Generic Name Dose Route Start Last Admin Trade Name Freq PRN Reason Stop Dose Admin Irbesartan 75 mg 12/05/24 21:32 12/05/24 21:49 Irbesartan 75mg Tablet PO 12/05/24 21:33 75 mg ONCE ONE Administration ORDERS Category Date Time Status XR chest 2V Stat Exams 12/05/24 20:14 Completed Complete Blood Count Auto Diff Stat Lab 12/05/24 20:20 Completed Comprehensive Metabolic Panel Stat Lab 12/05/24 20:20 Completed HCV RNA PCR, Quant Stat Lab 12/05/24 20:20 Received HIV Combo Stat Lab 12/05/24 20:20 Completed Hepatitis C Ab Qual. W/ RFX Stat Lab 12/05/24 20:20 Completed Troponin I Q3H Lab 12/05/24 23:15 Ordered Troponin I Q3H Lab 12/06/24 02:15 Ordered Troponin I Stat Lab 12/05/24 20:20 Completed ECG Data Tracing #1: I reviewed this ECG and interpreted as documented below: (Sinus rhythm 70 bpm with SC 156, QRS 92, QTc 398. Normal axis, no acute ischemic change) Medical Decision Narrative: In summary patient is a 44-year-old female who presents the emergency department for evaluation of chest. Patient is hypertensive upon arrival, afebrile. Unremarkable physical. Differential diagnosis includes hypertensive urgency, ACS, pneumonia. Initial workup will be conducted with labs, chest x-ray, EKG. Initial inventions include 1 dose of home medication. Initial workup reviewed by me unremarkable labs, chest x-ray. Upon repeat evaluation blood pressure significantly improved. Given this patient is appropriate for discharge home at this time with follow-up with PCP. Advised to take 1-1/2 of her losartan as two was causing hypotension in the past. I was consulted by the ZOE, and we discussed the complexity of the problems being addressed. I approved the treatment and management plan for this patient's care in the Emergency Department, thus performing a substantive portion of the medical decision making. Jimmy Vargas MD Critical Care <ELY Main - Last Filed: 12/05/24 22:31> Critical Care Time Critical Care Time: No
== END 2024-12-05 22:36 | disposition home or self-care (01) ==
PROVIDERS: Physician Assistant; Emergency Provider Emergency Medicine; PCP Social Worker
DX: I10 Essential (primary) hypertension (principal); R07.9 Chest pain, unspecified; R42 Dizziness and giddiness; R53.1 Weakness; R05.9 Cough, unspecified
CPT/HCPCS: 71046; 80053; 84484; 85025; 86803; 87389; 87522; 93005; 99284

== ENCOUNTER 2025-02-26 17:36 | Emergency (ER) | payer SELFPAY ==
[2025-02-26 18:12] VITALS: BP 119/74; PULSE 77; RESP 18; TEMP 36.8; O2SAT 100; BMI 23.0
--- OUTSIDE RECORDS SUMMARY | 2025-02-26 18:22 | XMS_ITS | Clinical Summary ---
Author Organization [facility] Address [address] [place] [address] Phone Care Team Providers Care Director Food Safety Name Role Phone Unavailable Unavailable Conditions or Problems No information available. Medications No information available. Medications Administered No information available. Allergies, Adverse Reactions, Alerts No information available. Results No information available. Plan of Care No information available. Procedures No information available. Vital Signs No information available. Immunizations No information available. Advance Directives No information available.
--- NOTE | 2025-02-26 18:50 | XR_ITS ---
PROCEDURE INFORMATION: Exam: XR Abdomen Exam date and time: 02/26/2025 7:11 PM Age: 44 years old Clinical indication: Constipation; Additional info: Constipation 2w, pain TECHNIQUE: Imaging protocol: Radiologic exam of the abdomen. Views: Frontal supine view of the abdomen. 1 View. COMPARISON: CR XR CHEST 2V 12/05/2024 8:20 PM FINDINGS: Tubes, catheters and devices: Tubal ligation clips in the pelvis. Gastrointestinal tract: Severe constipation. Nonobstructive bowel gas pattern. Intraperitoneal space: 4.8 x 4.5 cm calcification projecting in the pelvis. There is no free intraperitoneal air. Bones/joints: No acute skeletal abnormality or aggressive osseous lesion. IMPRESSION: 1. 4.8 x 4.5 cm calcification projecting in the pelvis. Could be related to a calcified uterine myoma or bladder calcification. Consider follow-up ultrasound. 2. Severe constipation.
--- NOTE | 2025-02-26 18:58 | [facility].EDGENADL ---
Discharge Plan Disposition Patient Disposition: Home, Self-Care Prescriptions Prescriptions: No Action losartan 25 mg Tablet 25 mg PO DAILY Referrals Follow up/Referrals: Michael Salinas MD [Primary Care Provider, Medical] - See instructions Activity Restrictions/Add. Instructions Additional Instructions/Restrictions: Call your family doctor to establish care for this visit to the emergency department and schedule follow-up within 48 hours to ensure improvement. If you have any worsening of your condition or any other concerning signs or symptoms, return to the emergency department or your primary care doctor for further evaluation. Bowel disimpaction sheet as provided. Clinical Impressions Clinical Impression: Fecal impaction Stand Alone Forms Stand Alone Forms: Work/School Release Instructions Patient Instructions: DI for Acute Abdominal Pain Print Language Print Language: Mauritanian Discharge ED Provider: Jimmy Vargas General Adult HPI General Chief complaint: Abdominal Pain Stated complaint: no BM for two weeks,back pain Time Seen by Provider: 02/26/25 18:41 Mode of Arrival: Ambulatory Source of Information: Patient Description of Symptoms (Recalled from ER Triage Doc. by RN): c/o no bm for 2 weeks, pressure in lower back and rectum. miralax and colon cleanse for 2 days, 7 stool softners, 4 doses lactulose, fleet, Friday was able to get 3 small balls out other than that no bm, pt reports she is passing gas. History of Present Illness HPI narrative: Please note that above description of symptoms, in this electronic medical record under categorization of recalled from ER triage doctor by RN are reflective of an initial nursing assessment, however, is not reflective of my full history and physical exam that was personally taken and clarified. Consequentially, this preceding description of symptoms, which may include the patient's categorized chief complaint in the EMR, do not reflect my personal clinical impression, and the ultimate description of history of present illness and patient stated complaints should be deferred to this section of the note. Unless stated otherwise or congruent with this section of the note, additional signs, symptoms, or incongruence should be interpreted as inaccurate with my clinical impression. Related Data Home Medications ?Medication ?Instructions ?Recorded ?Confirmed losartan 25 mg tablet 25 mg PO DAILY 12/05/24 12/05/24 Allergies Allergy/AdvReac Type Severity Reaction Status Date / Time No Known Allergies Allergy Verified 12/05/24 20:30 [facility] Disclaimer: The information contained in this section may have been updated after the patient was seen, as this information can be updated by other users. Medical History (Updated 02/26/25 @ 20:23 by Jimmy Vargas MD) Facet arthropathy, cervical Anxiety Surgical History (Updated 11/26/23 @ 14:07 by Christina Rudd RN) H/O tubal ligation Previous section Family History (Updated 11/26/23 @ 14:35 by Christina Rudd, RN) Other Cancer Social History (Updated 11/26/23 @ 14:39 by Christina Rudd RN) Smoking Status: Never smoker alcohol intake: never substance use type: former substance user current occupational status: employed Travel in the last 8 weeks?: None Have you lived/traveled outside [place] in past 30 days?: No Contact w/someone who lives/traveled outside [place] past 30 days?: No Exposure to someone with infectious disease in past 14 days?: No Do you have a fever (greater than 100.4 F or 38 C)?: No Have you tested positive for COVID-19?: No Exposed to someone with COVID-19 in past 14 days?: No Do you have a sore throat?: No Do you have a cough?: No Do you have any weakness?: No Do you have any diarrhea?: No Are you experiencing any unusual bleeding?: No Do you have any muscle aches/pain?: No Do you have any abdominal pain?: No Are you experiencing loss of taste or smell?: No Other Medical History Have you received the Flu Vaccine for this season: No Have you received the Pneumonia Vaccine: No ROS Obtained: Yes All systems reviewed & no additional complaints except as documented Physical Exam General General appearance: alert Head Head exam: atraumatic and normocephalic Eye Eye exam: Present normal appearance, PERRL and EOMI Neck Neck exam: Present normal inspection, full ROM and trachea midline Respiratory Respiratory exam: Absent respiratory distress, wheezes, stridor, accessory muscle use or prolonged expiratory phase Cardiovascular Cardiovascular exam: Present other (Pulses equal symmetric in upper and lower extremities) Abdominal Exam Abdominal exam: Present soft; Absent distention, tenderness or pulsatile mass Extremities Exam Extremities exam: Absent edema Neurological Exam Neurological exam: Present alert, oriented X3 and CN II-XII intact; Absent motor sensory deficit Skin Skin exam: Present warm and dry; Absent diaphoresis or erythema Medical Decision Making Medical Records Medical records reviewed: Yes I reviewed the patient's medical records. Screening: Per USPSTF and CDC recommendations, given the prevalence of disease in our region, it is our hospital?s policy to screen for HIV and viral Hepatitis for all patients aged 18 and over and those with ongoing risk factors. Henry Inquiry Pt receiving controlled substance: No Henry was queried for this patient: No Vital Signs: 02/26/25 18:12 02/26/25 19:01 02/26/25 19:52 Temperature 98.3 F Temperature Source Oral Pulse Rate 65 76 Pulse Rate [Left Radial] 77 Respiratory Rate 18 Blood Pressure 122/84 146/111 H Blood Pressure [Right Arm] 119/74 Blood Pressure Mean [Right Arm] 89 02 Sat by Pulse Oximetry 100 100 100 Oxygen Delivery Method Room Air 02/26/25 20:00 Temperature Temperature Source Pulse Rate 79 Pulse Rate [Left Radial] Respiratory Rate Blood Pressure 140/105 H Blood Pressure [Right Arm] Blood Pressure Mean [Right Arm] 02 Sat by Pulse Oximetry 100 Oxygen Delivery Method Lab Data Lab Results 02/26/25 18:40: Urine Color Yellow, Urine Appearance Sl cloudy, Urine pH 6.5, Ur Specific [place] 1.015, Urine Protein Negative, Urine Glucose (UA) Negative, Urine Ketones Negative, Urine Blood Negative, Urine Nitrate Negative, Urine Bilirubin Negative, Urine Urobilinogen 1.0, Ur Leukocyte Esterase Trace, Urine RBC Occasional, Urine WBC 3-5, Ur Squamous Epith Cells 10-20, Amorphous Sediment 3+, Urine Bacteria 2+, Urine HCG, Qual Negative 02/26/25 18:47: WBC 9.3, RBC 4.91, Hgb 12.8, Hct 41.6, MCV 84.7, MCH 26.1 L, MCHC 30.8 L, RDW 16.3, Plt Count 287, MPV 11.0 H, Neut % (Auto) 55.7, Lymph % (Auto) 32.2, [place] % (Auto) 11.0 H, Eos % (Auto) 0.5, Baso % (Auto) 0.4, Neut # (Auto) 5.2, Lymph # (Auto) 3.0, [place] # (Auto) 1.0, Eos # (Auto) 0.1, Baso # (Auto) 0.0, Sodium 140, Potassium 4.3, Chloride 99, Carbon Dioxide 32 H, Anion Gap 13.3, BUN 12, Creatinine 0.80, Estimated Creat Clear 85, Estimated GFR 79, Est GFR ( Amer) 95, Glucose 94, Calcium 10.2, Total Bilirubin 0.4, AST 25, ALT 13, Alkaline Phosphatase 64, Total Protein 7.9, Albumin 4.4, Globulin 3.5 H, Albumin/Globulin Ratio 1.3 02/26/25 18:47 02/26/25 18:47 Orders (Tests/Meds): ED MEDICATIONS Discontinued Medications Generic Name Dose Route Start Last Admin Trade Name Polly PRN Reason Stop Dose Admin Lactulose 30 gm 02/26/25 18:50 02/26/25 19:03 Lactulose 20gm/30ml Udc RC 02/26/25 18:51 30 gm ONCE ONE Administration Magnesium Citrate 10 oz 02/26/25 18:50 02/26/25 19:03 Magnesium Citrate 10oz Bottle PO 02/26/25 18:51 10 oz ONCE ONE Administration ORDERS Category Date Time Status KUB (single view) [XR KUB] Stat Exams 02/26/25 18:50 Taken CBC w/Auto Diff [Complete Blood Count Auto Diff] Stat Lab 02/26/25 18:47 Completed CMP [Comprehensive Metabolic Panel] Stat Lab 02/26/25 18:47 Completed UA [Urinalysis and Microscopic] Stat Lab 02/26/25 18:40 Completed Urine , HCG Qual. Stat Lab 02/26/25 18:40 Completed Urine Culture Stat Micro 02/26/25 18:40 Received Medical Decision Narrative: 44-year-old female no relevant medical history presenting with abdominal distention, presenting with constipation. She states that she has not had a regular bowel movement in about 2 weeks. She has been trying stool softeners, laxatives, osmotic agents, enemas, has had no luck. Had 3 small pellets passed on Friday, 5 days prior to this, but has had no other bowel movement since. No abdominal surgical history, still passing gas, still has bowel sounds. Mild distention pain, otherwise no complaints. No urinary symptoms, fevers, chills, etc. No blood in her stool. No vomiting. History was obtained via conversation with patient. On arrival, patient hemodynamically stable, alert, oriented x4, appropriate, GCS 15, moving all extremities spontaneously, pupils equal and reactive to light. Full physical exam performed and significant for well-appearing female. Abdomen soft, nontender, nondistended. In no acute distress. Differential includes constipation, colitis, diverticulitis, proctitis, , UTI, among others. Patient placed on continuous cardiac monitoring and continuous pulse ox with initial blood pressure 119/74, heart rate 77, saturation 100% on room air. Patient was given magnesium citrate and lactulose enema for symptomatic management and correction of underlying abnormalities. Workup independently interpreted and significant for nonactionable CBC or chemistry. Patient's urinalysis unremarkable and urine negative. On independent interpretation of imaging, patient has large stool ball and large stool burden. See radiology read for full review of final results. Lactulose enema and mag citrate were administered and patient had moderate to large volume bowel movement. Given patient presentation, workup, history, this most likely represents stool impaction. Disimpaction sheet was provided the patient. Because patient at baseline without signs or symptoms of clinical decompensation, deemed appropriate for discharge. Results were relayed to patient who voiced understanding and were agreeable to outpatient management and follow up. I discussed my clinical impression with patient and answered all questions. At this time, the evidence for any other entities in the differential is insufficient to warrant any further testing or ED observation. This was explained as well. Advisory was given that persistent or worsening symptoms require further evaluation. I confirmed the understanding of this discussion. Teacher Adult Education disclaimer Much of this encounter note is an electronic brazing machine setter spoken language to printed text. Electronic brazing machine setter of the spoken language may permit errors. Although I have reviewed the note, some errors may still exist. Critical Care Critical Care Time Critical Care Time: No
[2025-02-26 19:01] VITALS: BP 122/84; PULSE 65; O2SAT 100
[2025-02-26] MEDS: MAGNESIUM CITRATE 10OZ BOTTLE 10 ML PO (19:03)
[2025-02-26] MEDS: LACTULOSE 20GM/30ML UDC 30 GM RC (19:03)
[2025-02-26 19:08] LABS: Microscopic, Urine URINE MICROSCOPIC (MICROSCOPIC)
[2025-02-26 19:11] LABS: Basophils % 0.4 % (0.1-2.0); Eosinophils # 0.1 Kmm3 (0.0-0.4); Eosinophils % 0.5 % (0.1-12.0); Hematocrit 41.6 % (37.0-47.0); Hemoglobin 12.8 g/dL (12.2-16.2); Immature Granulocytes # 0.02 10^3uL; Immature Granulocytes % 0.2 %; Lymphocytes % 32.2 % (10-50); Mean Corpuscular HGB Conc 30.8 g/dL (31.8-35.4); Mean Corpuscular Hemoglobin 26.1 pg (27.0-31.2); Mean Corpuscular Volume 84.7 fl (81-99); Neutrophils # 5.2 K/mm3 (1.8-7.8); Neutrophils % 55.7 % (37.0-80.0); Nucleated Red Blood Cells # 0 10^3/uL; Nucleated Red Blood Cells % 0 %; Platelet Count 287 K/mm3 (142-424); Red Blood Count 4.91 M/mm3 (4.20-5.40); Red Cell Distribution Width 16.3 % (11.5-17.5); Red Cell Distribution Width-SD 50.5 fL; White Blood Count 9.3 K/mm3 (4.8-10.8)
[2025-02-26 19:11] LABS: Appearance,Urine SL CLOUDY (Clear); Bilirubin,Urine Negative (Negative); Blood, Urine Negative (Negative); Color,Urine YELLOW (Yellow); Glucose,Urine (UA) Negative (Negative); Ketones,Urine Negative (Negative); Leukocyte Esterase,Urine TRACE (Negative); Nitrate,Urine Negative (Negative); PH,Urine 6.5 (5.0-8.5); Protein,Urine Negative (Negative); Specific Gravity, Urine 1.015 (1.005-1.030)
[2025-02-26 19:13] LABS: Urine Pregnancy, HCG Qual. Negative (Negative)
[2025-02-26 19:17] LABS: Alanine Aminotransferase 13 U/L (12-78); Albumin Level 4.4 g/dl (3.5-5.0); Albumin/Globulin Ratio 1.3 (1.1-1.8); Alkaline Phosphatase 64 U/L (38-126); Anion Gap 13.3 mEq/L (5-15); Aspartate Amino Transferase 25 U/L (14-36); Bilirubin,Total 0.4 mg/dl (0.2-1.3); Blood Urea Nitrogen 12 mg/dl (7-17); Calcium 10.2 mg/dl (8.4-10.2); Carbon Dioxide 32 mmol/L (22.0-30.0); Chloride 99 mmol/L (98-107); Creatinine Clearance Estimated 85 mL/min (50-200); Estimated Glomerular Filt Rate 79 ml/min (>60); GFR (African American) 95 ML/MIN (>60); Globulin 3.5 g/dL (1.3-3.2); Glucose 94 mg/dl (74-100); Potassium 4.3 mmoL/L (3.5-5.1); Sodium 140 mmol/L (136-145); Total Protein,Serum 7.9 g/dl (6.3-8.2)
[2025-02-26 19:43] LABS: RBC,Urine Occasional #/hpf (0-3)
[2025-02-26 19:44] LABS: Amorphous Sediment,Urine 3+ /lpf; Bacteria,Urine 2+ /lpf
[2025-02-26 19:52] VITALS: BP 146/111; PULSE 76; O2SAT 100
[2025-02-26 20:00] VITALS: BP 140/105; PULSE 79; O2SAT 100
[2025-02-26 20:25] VITALS: BP 140/105; PULSE 79; RESP 18; TEMP 36.7; O2SAT 98
== END 2025-02-26 20:33 | disposition home or self-care (01) ==
PROVIDERS: Emergency Provider Emergency Medicine; PCP Social Worker
DX: K56.41 Fecal impaction (principal); M54.59 Other low back pain; K62.89 Other specified diseases of anus and rectum
CPT/HCPCS: 74018; 80053; 81001; 81025; 85025; 87086; 99283